=== PATIENT | male | born 1965 | race Caucasian/White ===

== ENCOUNTER → 2022-04-03 10:11 | Outpatient (BNVA) | payer SELFPAY | PROVIDERS: Visit Provider Nurse Practitioner Family | DX: I10 Essential (primary) hypertension (principal); Z95.2 Presence of prosthetic heart valve; Z79.01 Long term (current) use of anticoagulants | CPT/HCPCS: 85610 ==

== ENCOUNTER → 2022-04-26 10:24 | Outpatient (BNVA) | payer SELFPAY | PROVIDERS: Visit Provider Nurse Practitioner Family | DX: Z79.01 Long term (current) use of anticoagulants (principal) | CPT/HCPCS: 85610 ==

== ENCOUNTER → 2022-05-30 11:05 | Outpatient (BNVA) | payer SELFPAY | PROVIDERS: PCP Nurse Practitioner Family; Visit Provider Nurse Practitioner Family | DX: Z95.2 Presence of prosthetic heart valve (principal) | CPT/HCPCS: 85610 ==

== ENCOUNTER → 2022-06-29 10:24 | Outpatient (BNVA) | payer SELFPAY | PROVIDERS: PCP Nurse Practitioner Family; Visit Provider Nurse Practitioner Family | DX: Z95.2 Presence of prosthetic heart valve (principal) | CPT/HCPCS: 85610 ==

== ENCOUNTER 2022-07-26 16:10 | Outpatient (CLI) | payer OTHER, SELFPAY ==
[2022-07-26 17:10] LABS: INR 1.25 (0.8-1.2)
== END 2022-07-26 16:11 | disposition home or self-care (01) ==
PROVIDERS: PCP Nurse Practitioner Family; Visit Provider Nurse Practitioner Family
DX: Z79.01 Long term (current) use of anticoagulants (principal)
CPT/HCPCS: 85610

== ENCOUNTER → 2022-08-29 16:59 | Outpatient (BNVA) | payer BC, SELFPAY | PROVIDERS: PCP Nurse Practitioner Family; Visit Provider Nurse Practitioner Family | DX: Z79.01 Long term (current) use of anticoagulants (principal) | CPT/HCPCS: 85610 ==

== ENCOUNTER → 2022-09-12 16:36 | Outpatient (BNVA) | payer BC, SELFPAY | PROVIDERS: PCP Nurse Practitioner Family; Visit Provider Nurse Practitioner Family | DX: Z79.01 Long term (current) use of anticoagulants (principal) | CPT/HCPCS: 85610 ==

== ENCOUNTER → 2022-11-06 16:49 | Outpatient (BNVA) | payer BC, SELFPAY | PROVIDERS: PCP Nurse Practitioner Family; Visit Provider Nurse Practitioner Family | DX: Z79.01 Long term (current) use of anticoagulants (principal) | CPT/HCPCS: 85610 ==

== ENCOUNTER → 2023-01-22 16:13 | Outpatient (BNVA) | payer BC, SELFPAY | PROVIDERS: PCP Nurse Practitioner Family; Visit Provider Nurse Practitioner Family | DX: Z79.01 Long term (current) use of anticoagulants (principal) | CPT/HCPCS: 85610 ==

== ENCOUNTER → 2023-03-20 16:32 | Outpatient (BNVA) | payer BC, SELFPAY | PROVIDERS: PCP Nurse Practitioner Family; Visit Provider Nurse Practitioner Family | DX: I10 Essential (primary) hypertension (principal); Z95.2 Presence of prosthetic heart valve | CPT/HCPCS: 85610 ==

== ENCOUNTER → 2023-07-04 15:37 | Outpatient (BNVA) | payer BC, SELFPAY | PROVIDERS: PCP Nurse Practitioner Family; Visit Provider Nurse Practitioner Family | DX: Z79.01 Long term (current) use of anticoagulants (principal) | CPT/HCPCS: 85610 ==

== ENCOUNTER → 2023-07-22 16:24 | Outpatient (BNVA) | payer BC, SELFPAY | PROVIDERS: PCP Nurse Practitioner Family; Visit Provider Nurse Practitioner Family | DX: Z95.2 Presence of prosthetic heart valve (principal); Z98.890 Other specified postprocedural states | CPT/HCPCS: 85610 ==

== ENCOUNTER 2023-08-29 13:19 | Outpatient (CLI) | payer BC, SELFPAY ==
--- NOTE | 2023-08-29 13:45 | USCV_ITS ---
Emaniramin Fran Age: 57 Gender: M : 1965 Exam Date: 08/29/2023 13:53 Ordering Phys: Erica Chavarria MD ([email or web address]) Technologist: Cristy Delong Exam Location: [facility] [place] Indication: MV repair, AOV prosthetic, BP: 128 / 74 HR: 101 Rhythm: Sinus Technical Quality: Adequate MEASUREMENTS (Male / Female) Normal Values 2D ECHO LV Diastolic Diameter PLAX 5.1 cm 4.2 - 5.9 / 3.9 - 5.3 cm LV Systolic Diameter PLAX 3.3 cm IVS Diastolic Thickness 2.0 cm 0.6 - 1.0 / 0.6 - 0.9 cm IVS Systolic Thickness 1.4 cm LVPW Diastolic Thickness 1.2 cm 0.6 - 1.0 / 0.6 - 0.9 cm LVPW Systolic Thickness 1.6 cm LV Ejection Fraction 2D Teich 64.2 % LV Ejection Fraction MOD 2C 44.5 % LV Ejection Fraction 2C AL 43.8 % LA Diameter 4.3 cm LA Width 4.2 cm LA Height 4.3 cm RA Width 2.5 cm RA Height 5.2 cm Aorta at Sinotubular Diameter 3.3 cm IVC Diameter 1.3 cm M-MODE Aortic Annulus Diameter 2.6 cm LA Ao Ratio MM 1.5 MV E Point Septal Separation 0.3 cm DOPPLER AV Peak Velocity 212.8 cm/s LVOT Peak Velocity 124.0 cm/s MV Peak Velocity 146.0 cm/s MV Area PHT 5.1 cm squared Mitral E to A Ratio 3.1 MV E' Velocity 73.5 cm/s Mitral E to MV E' Ratio 8.8 Mitral E to LV E' Lateral Ratio 8.7 Mitral E to LV E' Septal Ratio 9.1 TR Peak Velocity 192.3 cm/s TR Peak Gradient 14.8 mmHg Right Atrial Pressure 5.0 mmHg Pulmonary Artery Systolic Pressu 19.8 mmHg PV Peak Velocity 98.0 cm/s RV Acceleration Time 0.1 s RV Ejection Time 0.2 s RV AcT/ET 0.4 FINDINGS Left Ventricle With the diminished ejection fraction ofNormal left ventricular size and systolic function, EF 42 %. Diffuse hypokinesia left- ventricular, mor so of the basal septum and inferior wall segment Right Ventricle The right ventricle is normal in size and function. Right Atrium Mildly increased right atrial size. Left Atrium Moderately increased left atrial size. Mitral Valve Mild mitral valve regurgitation. Echodensity suggesting mitral annular ring Aortic Valve The aortic valve prosthesis appears to be well-seated. Peak velocity across the aortic valve was 1.99 m/s. Tricuspid Valve Trace to mild tricuspid valve regurgitation. Pulmonic Valve Pulmonic valve not well visualized. Pericardium No pericardial effusion. Aorta Normal aortic annulus size. IVC The inferior vena cava appears normal. CONCLUSIONS With the diminished ejection fraction ofNormal left ventricular size and systolic function, EF 42 %. Diffuse hypokinesia left- ventricular, mor so of the basal septum and inferior wall segments. The aortic valve prosthesis appears to be well-seated. Peak velocity across the aortic valve was 1.99 m/s. Mild mitral valve regurgitation. Echodensity suggesting mitral annular ring Moderately increased left atrial size. Mildly increased right atrial size. There is no pericardial effusion. There are no intracardiac masses. No similar previous studies are available for comparison Dr Erica Chavarria MD [facility] (Electronically Signed) Final Date: 31 August 2023 14:02 S
== END 2023-08-29 13:20 | disposition home or self-care (01) ==
LOC: RAD 13:20
PROVIDERS: PCP Nurse Practitioner Family; Visit Provider Internal Medicine Cardiovascular Disease
DX: R06.09 Other forms of dyspnea (principal)
CPT/HCPCS: 93306

== ENCOUNTER 2023-09-10 12:15 | Outpatient (CLI) | payer BC, SELFPAY ==
[2023-09-10 13:33] LABS: Anion Gap 13.3 (5-19); Blood Urea Nitrogen 20 mg/dL (6-20); Calcium 9.2 mg/dL (8.5-10.5); Carbon Dioxide 26 mmol/L (22-29); Chloride 104 mmol/L (98-107); Glomerular Filtration Rate 77.3 mL/min (90-130); Glucose 100 mg/dL (65-115); NT Pro B Type Natriuretic Pept 286 pg/mL (0-125); Osmolality Calculated 291 mOsm/kg (285-295); Potassium 4.3 mmol/L (3.5-5.1); Sodium 139 mmol/L (136-145); Thyroid Stimulating Hormone 0.98 uIU/mL (0.27-4.20)
== END 2023-09-10 12:16 | disposition home or self-care (01) ==
PROVIDERS: Internal Medicine Cardiovascular Disease; PCP Nurse Practitioner Family; Visit Provider Internal Medicine
DX: Z86.79 Personal history of other diseases of the circulatory system (principal); Z95.2 Presence of prosthetic heart valve; Z98.890 Other specified postprocedural states
CPT/HCPCS: 36415; 80048; 83880; 84443

== ENCOUNTER 2023-10-18 11:21 | Outpatient (CLI) | payer BC, SELFPAY ==
[2023-10-18 11:53] LABS: Anion Gap 12.9 (5-19); Blood Urea Nitrogen 21 mg/dL (6-20); Calcium 9.5 mg/dL (8.5-10.5); Carbon Dioxide 26 mmol/L (22-29); Chloride 106 mmol/L (98-107); Glomerular Filtration Rate 62.6 mL/min (90-130); Glucose 90 mg/dL (65-115); Osmolality Calculated 293 mOsm/kg (285-295); Potassium 4.9 mmol/L (3.5-5.1); Sodium 140 mmol/L (136-145)
== END 2023-10-18 11:22 | disposition home or self-care (01) ==
PROVIDERS: PCP Nurse Practitioner Family; Visit Provider Nurse Practitioner Family
DX: I50.22 Chronic systolic (congestive) heart failure (principal)
CPT/HCPCS: 36415; 80048

== ENCOUNTER 2024-07-25 09:20 | Emergency (ER) | payer BC, SELFPAY ==
[2024-07-25 09:33] VITALS: BP 127/85; PULSE 88; RESP 18; TEMP 36.4; O2SAT 96; BMI 33.0
--- NOTE | 2024-07-25 09:37 | XRR_ITS ---
PROCEDURE INFORMATION: Exam: XR Left Tibia and Fibula Exam date and time: 07/25/2024 10:01 AM Age: 58 years old Clinical indication: Pain and injury or trauma; Fall; Blunt trauma; Injury details: PT C/O tripping up the stairs x1 week ago, PT C/O of left lower leg pain. ; Additional info: Lle pain d/t fall TECHNIQUE: Imaging protocol: Radiologic exam of the left tibia and fibula. Views: 2 views. COMPARISON: No relevant prior studies available. FINDINGS: Bones/joints: Normal. Soft tissues: Normal. XR/XR tibia fibula LT 2V [id number] IMPRESSION: No acute findings.
[2024-07-25 10:40] VITALS: BP 100/74; O2SAT 95
[2024-07-25 11:00] VITALS: BP 109/87; O2SAT 98
[2024-07-25 11:15] VITALS: BP 121/82
[2024-07-25 11:30] VITALS: BP 116/95; O2SAT 97
--- NOTE | 2024-07-25 12:47 | ED_ITS ---
HPI - Extremity Problem General: Chief complaint: Extremity Injury, Lower Stated complaint: Left leg injury Time Seen by Provider: 07/25/24 09:32 History of Present Illness: 58-year-old male present to the emergenc y room complaining of left lower leg pain after a fall 1 week ago Related Data Home Medications Medication Instructions Recorded Confirmed aspirin 81 mg tablet,delayed 81 mg PO DAILY 04/03/22 03/21/24 release Previous Rx's Medication Instructions Recorded sacubitril 97 mg-valsartan 103 mg 1 tab PO BID #180 tabs 10/21/23 tablet metoprolol succinate 50 mg 50 mg PO DAILY #90 tabs 03/19/24 tablet,extended release 24 hr warfarin 5 mg tablet See Rx Instructions PO DAILY #102 03/19/24 tabs Allergies Allergy/AdvReac Type Severity Reaction Status Date / Time No Known Allergies Allergy Verified 03/21/24 10:12 [facility] ED PFSH: Medical History Hx of essential hypertension Hx of cardiac murmur Surgical History History of mitral valve repair Hx of mechanical aortic valve replacement Family History Mother Hypertension Father Dementia Social History Smoking and tobacco/nicotine status: never used tobacco/nicotine Second hand smoke exposure: No Alcohol intake: never Substance/Drug Use: never Adopted: No Caregiver/support person: No Lives independently: Yes Household members: spouse Housing: House Marital status: Number of children: 0 Highest education level completed: Some College, No Degree service: No Current occupational status: unemployed Course Vital Signs: Vital signs: Vital Signs Temperature 97.6 F 07/25/24 09:33 Pulse Rate 88 07/25/24 09:33 Respiratory Rate 18 07/25/24 09:33 Blood Pressure 116/95 07/25/24 11:30 Pulse Oximetry 97 07/25/24 11:30 Oxygen Delivery Me thod Room Air 07/25/24 09:33 MDM - Extremity (Nontraumatic) Medical Decision Making Based on the nurses triage note a tib-fib x-ray was ordered which was negative. However patient left AGAINST MEDICAL ADVICE without being seen. I never did see the patient. I reviewed the x-ray report by the radiologist was read as negative. On the distal portion of the tibia there is a slight prominence in the cortex of the bone medially however there is no evidence of fracture. Appears to be a bony anomaly in the cortex does not have the appearance of an old fracture or callus. Per nursing staff patient left AMA Lab Data Radiology Impressions Tibia/Fibula X-Ray 07/25/24 09:37 IMPRESSION: No acute findings. All radiology interpretation(s) finalized by discharge Discharge Plan Discharge Patient Disposition: Left Against Medical Advice Clinical Impression: Lower extremity pain, left Condition: Stable Prescriptions: No Action aspirin 81 mg tablet,delayed release (DR/EC) 81 mg PO DAILY sacubitril-valsartan 97-103 mg tablet 1 tab PO BID Qty: 180 3RF metoprolol succinate 50 mg tablet extended release 24 hr 50 mg PO DAILY Qty: 90 1RF warfarin 5 mg tablet See Rx Instructions PO DAILY Qty: 102 1RF Rx Instructions: INR 1.5-2, Sun Sat Tu Thurs 5mg, Sat Sat 7.5 mg Referrals: Jocelyn Mercedes FNP-C [Primary Care Provider] - Coding Level of Care Code ED Sleeping Bag Filler for Vale Elliott
== END 2024-07-25 12:13 | disposition left against medical advice (07) ==
PROVIDERS: Emergency Provider Family Medicine; PCP Nurse Practitioner Family
DX: M79.605 Pain in left leg (principal); Z53.29 Procedure and treatment not carried out because of patient's decision for other reasons; Z79.82 Long term (current) use of aspirin; Z79.01 Long term (current) use of anticoagulants; I10 Essential (primary) hypertension
CPT/HCPCS: 73590; 85610; 99283

== ENCOUNTER 2024-07-28 10:56 | Emergency (ER) | payer BC, SELFPAY ==
[2024-07-28 11:00] VITALS: BP 116/89; PULSE 95; TEMP 36.4; O2SAT 97; BMI 33.8
--- NOTE | 2024-07-28 11:02 | USCV_ITS ---
Fran Frias Age: 58 Gender: M : 1965 Exam Date: 07/28/2024 11:10 Ordering Phys: Otilio Hall MD Technologist: R [place]am [place] [facility] [place] Indication: lt leg pain and swelling after a fall PROCEDURES: Venous duplex imaging was performed in only the left lower extremity. The following venous structures were evaluated: common femoral vein, profunda vein, proximal portion of the greater saphenous vein, superficial femoral vein, and the popliteal vein. In addition, the posterior tibial and peroneal trunk were evaluated. FINDINGS: Normal 2-D Doppler and augmentation and compressibility throughout the lower extremity venous structures. Additional imaging through the proximal calf veins also reveals no thrombus. Limited evaluation of the greater saphenous vein is patent with no thrombus. CONCLUSIONS No DVT left lower extremity. Dr. Martha Acosta DO (Electronically Signed) Final Date: 29 July 2024 09:55 S
[2024-07-28 11:34] VITALS: BP 118/87; PULSE 91; O2SAT 96
--- NOTE | 2024-07-28 11:38 | ED_ITS ---
HPI - Extremity Problem General: Chief complaint: Extremity Injury, Lower Stated complaint: Ultrasound left leg Time Seen by Provider: 07/28/24 11:04 Source: patient Mode of arrival: ambulatory Limitations: no limitations History of Present Illness: 58-year-old male had hit his left manzo w [place] ago he states he had increased swelling he is on Coumadin he has not been doing any compression he had some pain. He was seen here had a normal x-ray he is ambulatory. Denies any other injuries Associated symptoms: Deny chest pain, fever(s) or rash Related Data Home Medications Medication Instructions Recorded Confirmed aspirin 81 mg tablet,delayed 81 mg PO DAILY 04/03/22 07/28/24 release Previous Rx's Medication Instructions Recorded sacubitril 97 mg-valsartan 103 mg 1 tab PO BID #180 tabs 10/21/23 tablet metoprolol succinate 50 mg 50 mg PO DAILY #90 tabs 03/19/24 tablet,extended release 24 hr warfarin 5 mg tablet See Rx Instructions PO DAILY #102 03/19/24 tabs Allergies Allergy/AdvReac Type Severity Reaction Status Date / Time No Known Allergies Allergy Verified 07/28/24 11:08 Review of Systems Const: Denies: fever(s), chills, body aches or change in appetite ENMT: Denies: throat pain or dental pain Card: Denies: chest pain Resp: Denies: dyspnea GI: Denies: abdominal pain, nausea, vomiting or diarrhea Musc: Reports: extremity pain and extremity swelling; Denies: neck pain or back pain Skin/Breast: Denies: rash Neuro: Denies: headache(s) PFSH ED PFSH: Medical History Hx of essential hypertension Hx of cardiac murmur Surgical History History of mitral valve repair Hx of mechanical aortic valve replacement Family History Mother Hypertension Father Dementia Social History Smoking and tobacco/nicotine status: never used tobacco/nicotine Second hand smoke exposure: No Alcohol intake: never Substance/Drug Use: never Adopted: No Caregiver/support person: No Lives independently: Yes Household members: spouse Housing: House Marital status: Number of children: 0 Highest education level completed: Some College, No Degree service: No Current occupational status: unemployed Physical Exam Const: COMMON NORMALS: no acute distress, patient oriented x3 and healthy appearing HENMT: COMMON NORMALS: normocephalic and atraumatic HEAD & SCALP: normocephalic and atraumatic Neck/C-Spine: COMMON NORMALS: full ROM and supple Chest: COMMONS NORMALS: normal inspection of the chest Resp: COMMON NORMALS: normal respiratory effort Cardio: COMMON NORMALS: regular rate RATE: regular rate Extremity: COMMON NORMALS: full ROM NARRATIVE EXTREMITY EXAM: Bruising noted to anterior lower left leg distal pulses intact mild tenderness no deformity Neuro: COMMON NORMALS: patient oriented x3, moves all extremities and no focal motor deficits Psych: COMMON NORMALS: mental status grossly normal, Normal thought process present and cooperative THOUGHT PROCESS: Normal thought process present Skin: COMMON NORMALS: no rashes or lesions noted and no wounds GENERAL SKIN EXAM: no rashes or lesions noted Course Vital Signs: Vital signs: Vital Signs Temperature 97.6 F 07/28/24 11:00 Pulse Rate 91 07/28/24 11:34 Blood Pressure 118/87 07/28/24 11:34 Pulse Oximetry 96 07/28/24 11:34 Oxygen Delivery Me thod Room Air 07/28/24 11:34 MDM - Extremity (Nontraumatic) Medical Decision Making Patient presents here with swelling of the left lower leg is likely contusion as he is on Coumadin ultrasound showed no DVT has not been doing any icing or compression did place an Bryant wrap informed he needs to ice and compress that leg he just recently had his INR checked he stable for discharge follow-up with PCP return if worsening Medical Records I reviewed the patient's medical records. Lab Data I reviewed the patient's lab results. All radiology interpretation(s) finalized by discharge Discharge Plan Discharge Patient Disposition: Home Clinical Impression: Contusion of left leg Condition: Stable Prescriptions: No Action aspirin 81 mg tablet,delayed release (DR/EC) 81 mg PO DAILY sacubitril-valsartan 97-103 mg tablet 1 tab PO BID Qty: 180 3RF metoprolol succinate 50 mg tablet extended release 24 hr 50 mg PO DAILY Qty: 90 1RF warfarin 5 mg tablet See Rx Instructions PO DAILY Qty: 102 1RF Rx Instructions: INR 1.5-2, Sun Sat 5mg, Sat Sat 7.5 mg Discharge Orders: Discharge ED (Routine); Ordered 07/28/24 Ordered By: Otilio Hall Referrals: Jocelyn Mercedes FNP-C [Primary Care Provider] - 1-3 days Discharge Diet: Advance as tolerated Discharge Activity: Resume usual activity Patient Instructions: Contusion in Adults (ED) Coding Level of Care Code ED Research Physician for Vale Elliott
--- NOTE | 2024-07-28 11:52 | PC.NURSE ---
julian wrap, 3in, applied to left lower leg.
[2024-07-28 12:15] VITALS: BP 93/69; PULSE 87; O2SAT 96
== END 2024-07-28 12:16 | disposition home or self-care (01) ==
PROVIDERS: Emergency Provider Emergency Medicine; PCP Nurse Practitioner Family
DX: S80.12XA Contusion of left lower leg, initial encounter (principal); Z79.82 Long term (current) use of aspirin; Z79.01 Long term (current) use of anticoagulants; I10 Essential (primary) hypertension; W22.8XXA Striking against or struck by other objects, initial encounter
CPT/HCPCS: 93971; 99284

== ENCOUNTER 2024-08-18 06:00 | Outpatient (CLI) | payer BC, SELFPAY | END 2024-08-18 06:01 | disposition home or self-care (01) | LOC: RAD 08-28 13:21 | PROVIDERS: PCP Nurse Practitioner Family; Visit Provider Internal Medicine Cardiovascular Disease | DX: R06.02 Shortness of breath (principal) | CPT/HCPCS: 36415; 80048; 83880 ==

== ENCOUNTER → 2024-09-17 09:49 | Outpatient (BNVA) | payer BC, SELFPAY | PROVIDERS: PCP Nurse Practitioner Family; Visit Provider Clinical Nurse Specialist Adult Health | DX: I35.0 Nonrheumatic aortic (valve) stenosis (principal) | CPT/HCPCS: 85610 ==

== ENCOUNTER 2024-09-22 06:34 | Outpatient (CLI) | payer BC, SELFPAY ==
--- NOTE | 2024-09-22 07:00 | USCV_ITS ---
Fran Frias Age: 58 Gender: M : 1965 Exam Date: 09/22/2024 06:49 Ordering Phys: Erica Chavarria MD ([email or web address]) Technologist: Bernard Beaulieu [place] Location[place] [facility] [place] Indication: ao pros mv repair cardiomyopathy BP: 125 / 75 HR: 82 Rhythm: Sinus Technical Quality: Adequate MEASUREMENTS (Male / Female) Normal Values 2D ECHO LV Diastolic Diameter PLAX 5.1 cm 4.2 - 5.9 / 3.9 - 5.3 cm IVS Diastolic Thickness 1.6 cm 0.6 - 1.0 / 0.6 - 0.9 cm IVS Systolic Thickness 2.0 cm LVPW Diastolic Thickness 1.1 cm 0.6 - 1.0 / 0.6 - 0.9 cm LVPW Systolic Thickness 1.9 cm LVOT Diameter 2.1 cm LV Ejection Fraction 2D Teich 49.1 % LV Ejection Fraction MOD 4C 52.2 % LV Ejection Fraction MOD 2C 52.5 % LV Ejection Fraction 2C AL 55.3 % LA Diameter 4.9 cm RA Systolic Volume 4C AL 88.0 ml RA Systolic Volume 4C MOD 83.2 ml Aorta at Sinotubular Diameter 4.0 cm M-MODE LA Ao Ratio MM 1.5 AV Cusp Separation MM 1.8 cm DOPPLER AV Peak Velocity 160.0 cm/s LVOT Peak Velocity 69.0 cm/s AV Area Cont Eq vti 1.8 cm squared AV Area Cont Eq pk 1.4 cm squared MV Area PHT 4.5 cm squared Mitral E to A Ratio 2.5 TV Peak Velocity 228.0 cm/s TR Peak Velocity 290.0 cm/s TR Peak Gradient 33.6 mmHg TV Peak E Velocity 87.0 cm/s Right Atrial Pressure 3.0 mmHg Pulmonary Artery Systolic Pressu 36.6 mmHg PV Peak Velocity 88.0 cm/s FINDINGS Left Ventricle Diffuse hypokinesia left ventricular ejection fraction of 49%. Right Ventricle The right ventricle is normal in size and function. Right Atrium Moderately increased right atrial size. Left Atrium Moderately increased left atrial size. Mitral Valve Mitral annular ring present.mild mitral valve regurgitation. Aortic Valve The prosthetic valve at the aortic valve appears to be well- seated.( On X valve/?) Peak velocity across the valve was 1.6 m/s Tricuspid Valve Mild tricuspid valve regurgitation. Estimated pulmonary artery peak systolic pressure 37 mmHg Pulmonic Valve Pulmonic valve not well visualized. Pericardium No pericardial effusion. Aorta Normal aortic annulus size. IVC Inferior vena cava not visualized. CONCLUSIONS Diffuse hypokinesia left ventricular ejection fraction of 49%. Moderate biatrial enlargement The prosthetic valve the aortic valve appears to be well-seated. Peak velocity across the valve was 1.6 m/s. Mild mitral valve regurgitation with interactive mitral annular ring Mild tricuspid valve regurgitation. Estimated pulmonary artery peak systolic pressure 37 mmHg There is no pericardial effusion. There are no intracardiac masses. Compared to the previous study from 08/29/2023, there may be a slight improvement in the LVEF. Dr Erica Chavarria MD [facility] (Electronically Signed) Final Date: 27 September 2024 18:01 S
== END 2024-09-22 06:35 | disposition home or self-care (01) ==
PROVIDERS: PCP Nurse Practitioner Family; Visit Provider Internal Medicine Cardiovascular Disease
DX: I34.81 Nonrheumatic mitral (valve) annulus calcification (principal); I51.7 Cardiomegaly; R06.09 Other forms of dyspnea
CPT/HCPCS: 93306

== ENCOUNTER → 2025-02-15 11:53 | Outpatient (BNVA) | payer BC, SELFPAY | PROVIDERS: PCP Nurse Practitioner Family; Visit Provider Nurse Practitioner Family | DX: I50.22 Chronic systolic (congestive) heart failure (principal); Z86.79 Personal history of other diseases of the circulatory system; Z95.2 Presence of prosthetic heart valve | CPT/HCPCS: 36415; 80048; 83880; 85610 ==

== ENCOUNTER → 2025-04-19 11:41 | Outpatient (BNVA) | payer BC, SELFPAY | PROVIDERS: PCP Nurse Practitioner Family; Visit Provider Internal Medicine Cardiovascular Disease | DX: I50.22 Chronic systolic (congestive) heart failure (principal); R06.09 Other forms of dyspnea; Z98.890 Other specified postprocedural states | CPT/HCPCS: 80048; 83880; 85610 ==

== ENCOUNTER → 2025-05-06 16:41 | Outpatient (BNVA) | payer BC, SELFPAY | PROVIDERS: PCP Nurse Practitioner Family | DX: I50.9 Heart failure, unspecified (principal) | CPT/HCPCS: 80048 ==